=== PATIENT | female | born 1975 | race Asian ===

== ENCOUNTER 2017-03-02 16:50 | Emergency (ER) | payer OTHER ==
[~2017-03-02] VITALS: Ht 157.5 cm; Wt 63.0 kg
[2017-03-02 16:53] VITALS: Ht 157.5 cm; Wt 63.0 kg
[2017-03-02] MEDS ORDERED: KETOROLAC 30 MG INJ IV STA (18:14)
[2017-03-02 19:04] LABS: ADD UMIC YES; UR ASCORBIC ACID NEGATIVE (NEGATIVE); UR BILIRUBIN (Dip) NEGATIVE (NEGATIVE); UR BLOOD (Dip) NEGATIVE (NEGATIVE); UR CLARITY CLEAR (CLEAR); UR COLOR YELLOW (YELLOW); UR GLUCOSE (Dip) NEGATIVE (NEGATIVE); UR KETONES (Dip) NEGATIVE (NEGATIVE); UR LEUKOCYTE ESTERASE (Dip) 2+ Leu/ul (NEGATIVE); UR NITRITE (Dip) NEGATIVE (NEGATIVE); UR RBC 2 /HPF (0-5); UR SQUAMOUS EPITHELIAL CELL FEW /HPF (FEW); UR TOTAL PROTEIN (Dip) NEGATIVE (NEGATIVE); UR UROBILINOGEN (Dip) NEGATIVE (NEGATIVE)
[2017-03-02 19:34] LABS: BASOPHILS % 0.5 % (0.0-2.0); EOSINOPHILS # 0.1 10^3/ul (0.0-0.5); EOSINOPHILS % 1.1 % (0.0-7.0); HEMATOCRIT 34.9 % (37.0-47.0); HEMOGLOBIN 11.9 g/dl (12.0-16.0); LYMPHOCYTES # 2.5 10^3/ul (0.8-2.9); LYMPHOCYTES % 39.3 % (15.0-51.0); MEAN CORPUSCULAR HEMOGLOBIN 28.7 pg (29.0-33.0); MEAN CORPUSCULAR HGB CONC 34.1 g/dl (32.0-37.0); MEAN CORPUSCULAR VOLUME 84.1 fl (82.0-101.0); MEAN PLATELET VOLUME 11.3 fl (7.4-10.4); MONOCYTE # 0.3 10^3/ul (0.3-0.9); MONOCYTES % 4.7 % (0.0-11.0); NEUTROPHIL # 3.5 10^3/ul (1.6-7.5); NEUTROPHILS % 54.2 % (39.0-77.0); PLATELET COUNT 235 10^3/UL (140-415); RED BLOOD COUNT 4.15 10^6/ul (4.20-5.40); WHITE BLOOD COUNT 6.4 10^3/ul (4.8-10.8)
[2017-03-02 19:54] LABS: ALBUMIN 4.5 g/dl (3.3-4.9); ALBUMIN/GLOBULIN RATIO 1.4; BILIRUBIN,INDIRECT 0.5 mg/dl (0-1.1); BILIRUBIN,TOTAL 0.5 mg/dl (0.2-1.3); CALCIUM 9.3 mg/dl (8.4-10.2); CREATININE 0.57 mg/dl (0.44-1.00); POTASSIUM 4.5 mmol/L (3.5-5.1); TOTAL PROTEIN 7.7 g/dl (6.1-8.1)
--- NOTE | 2017-03-02 19:54 | RADRPT ---
PROCEDURE: CT abdomen and pelvis without contrast. CLINICAL INDICATION: Right lower quadrant pain TECHNIQUE: Continues 2.5 mm axial images were obtained from the domes of the diaphragms to the inf erior pubic rami. No oral or intravenous contrast was administered. The calculated dose length prod uct (DLP) = 385.64 mGy-cm. Exam CTDlvol = 6.40 mGy. One or more of the following dose reduction t echniques were used: Automated exposure control, adjustment of the mA and or KV according to patient size, or use of iterative reconstruction technique. One or more of the following dose reduction te chniques were used: Automated exposure control, adjustment of the mA and or KV according to patient size, or use of iterative reconstruction technique. COMPARISON: None. FINDINGS: Lung bases are clear. No pleural pericardial fluid is seen. Liver, gallbladder, pancreas, spleen, adrenals, and kidneys are within normal limits on this noncont rast study. There is no evidence of renal calculi or obstructive uropathy. Aorta is normal in calibe r. No pathologically enlarged mesenteric lymph nodes are seen. The stomach and small bowel loops are within normal limits. Is no small bowel dilatation or obstruction. No free fluid, free air, abscess is noted in the upper abdomen CT pelvis: images through the pelvis demonstrate no free fluid, free air, abscess. Bladder is deborah lly distended grossly unremarkable. Uterus is atrophic or surgically absent. Adnexa are grossly unre markable. Evaluation of the colon demonstrates no diverticulosis, diverticulitis or acute colitis. N ormal appendix and terminal ileum are identified. There are no pathologically enlarged iliac chain l ymph nodes. No destructive bony lesions are seen. There is mild broad-based disc bulge at L3-4, and a moderate b road-based disc bulge at L4-5. IMPRESSION: 1. No acute inflammatory process, mass, or adenopathy. 2. Normal appendix and terminal ileum. 3. Status post hysterectomy. 4. Moderate broad-based disc bulge at L4-5 RPTAT: HH .Lukas Eng MD, Date Time Electronically viewed and signed by .Lukas Eng MD, on 03/02/2017 19:53 .W/
[2017-03-02] MEDS ORDERED: CEPH-443 PO (20:37)
[2017-03-02] MEDS ORDERED: IBUP-1542 PO (20:37)
--- NOTE | 2017-03-02 20:41 | ERD ---
ER Documentation Chief Complaint Chief Complaint Pt with RLQ AP X 4 days and back pain since yesterday. HPI This 41-year-old female presents with pain in the right lower abdomen for last 4 days. She has left low back pain as well. She denies any fevers, vomiting, nausea. She denies urinary complaints or vaginal discharge. Patient states that she is status post hysterectomy and oophorectomy for some unspecified problem 15 years ago but still has her appendix. ROS All systems reviewed and are negative except as per history of present illness. Medications Home Meds Active Scripts Cephalexin* (Keflex*) 500 Mg Capsule, 500 MG PO QID for 5 Days, CAP Prov:MERCDEES PARNELL MD 03/02/17 Ibuprofen* (Motrin*) 600 Mg Tab, 600 MG PO Q6, #15 TAB Prov:MERCEDES PARNELL MD 03/02/17 PMhx/Soc Medical and Surgical Hx: pt denies Medical Hx, pt denies Surgical Hx Hx Alcohol Use: No Hx Substance Use: No Hx Tobacco Use: No Smoking Status: Never smoker Physical Exam Vitals Vital Signs Date Time Temp Pulse Resp B/P Pulse Ox O2 Delivery O2 Flow Rate FiO2 03/02/17 16:53 98.3 75 18 126/84 95 Physical Exam Const: [], [id number]. Head: Atraumatic Eyes: Normal Conjunctiva ENT: Normal External Ears, Nose and Mouth. Neck: Full range of motion..~ No meningismus. Resp: Clear to auscultation bilaterally Cardio: Regular rate and rhythm, no murmurs Abd: Soft, tenderness in the right lower quadrant. No tenderness in the upper abdomen no Haro sign. No rebound. non distended. Normal bowel sounds Skin: No petechiae or rashes Back: No midline or flank tenderness. Mild left L4-5 paraspinous muscle tenderness. Ext: No cyanosis, or edema Neur: Awake and alert Psych: Normal Mood and Affect Result Diagram: 03/02/17185403/02/171854 Results 24 hrs Laboratory Tests Test 03/02/17 18:20 03/02/17 18:55 Urine Color YELLOW Urine Clarity CLEAR Urine pH 5.0 Urine Specific [place] 1.020 Urine Ketones NEGATIVEmg/dL Urine Nitrite NEGATIVEmg/dL Urine Bilirubin NEGATIVEmg/dL Urine Urobilinogen NEGATIVEmg/dL Urine Leukocyte Esterase 2+Herminio/ul Urine Microscopic RBC 2/HPF Urine Microscopic WBC 10/HPF Urine Squamous Epithelial Cells FEW/HPF Urine Hemoglobin NEGATIVEmg/dL Urine Glucose NEGATIVEmg/dL Urine Total Protein NEGATIVEmg/dl White Blood Count 6.410^3/ul Red Blood Count 4.1510^6/ul Hemoglobin 11.9g/dl Hematocrit 34.9% Mean Corpuscular Volume 84.1fl Mean Corpuscular Hemoglobin 28.7pg Mean Corpuscular Hemoglobin Concent 34.1g/dl Red Cell Distribution Width 12.0% Platelet Count 04672^3/UL Mean Platelet Volume 11.3fl Neutrophils % 54.2% Lymphocytes % 39.3% Monocytes % 4.7% Eosinophils % 1.1% Basophils % 0.5% Nucleated Red Blood Cells % 0.0/100WBC Neutrophils # 3.510^3/ul Lymphocytes # 2.510^3/ul Monocytes # 0.310^3/ul Eosinophils # 0.110^3/ul Basophils # 0.010^3/ul Nucleated Red Blood Cells # 0.010^3/ul Sodium Level 144mmol/L Potassium Level 4.5mmol/L Chloride Level 107mmol/L Carbon Dioxide Level 27mmol/L Anion Gap 15 Blood Urea Nitrogen 13mg/dl Creatinine 0.57mg/dl Glucose Level 123mg/dl Calcium Level 9.3mg/dl Total Bilirubin 0.5mg/dl Direct Bilirubin 0.00mg/dl Indirect Bilirubin 0.5mg/dl Aspartate Amino Transf (AST/SGOT) 22IU/L Alanine Aminotransferase (ALT/SGPT) 45IU/L Alkaline Phosphatase 145IU/L Total Protein 7.7g/dl Albumin 4.5g/dl Globulin 3.20g/dl Albumin/Globulin Ratio 1.40 Lipase 134U/L Current Medications Medications (Trade) Dose Ordered Sig/Jeremy Route PRN Reason Start Time Stop Time Status Last Admin Dose Admin Ketorolac Tromethamine 30 mg 30 mg ONCE STAT IV 03/02/17 18:14 03/02/17 18:16 DC 03/02/17 18:58 Ceftriaxone Sodium (Rocephin) 50 ml @ 100 mls/hr ONCE ONCE IVPB 03/02/17 21:00 03/02/17 21:29 UNV Procedures/MDM Shows leukocytes and white blood cells. CBC shows no leukocytosis. Hemoglobin is 11.9. CMP and lipase normal. HCG negative. CT abdomen pelvis was performed given the uncertain cause of her lower quadrant abdominal pain which shows no acute abnormalities. Patient was given Rocephin 1 g IV for findings of UTI and lower abdominal pain of uncertain etiology. She was given Toradol 30 mg IV and had minimal pain and felt better after observation treatment. No signs of appendicitis, acute abdomen, sepsis, no evidence of abscess or tubo- ovarian abscess or history to suggest PID. She will be treated with ibuprofen and Keflex at home, primary care follow-up and return precautions. The patient was stable with no new complaints during the ER course. Clinically, there is no current evidence to suggest meningitis, sepsis, acute abdomen, pneumonia, acute coronary syndrome, pulmonary embolism, or any other emergent condition appearing to require further evaluation or hospitalization. The patient should certainly return for any new or worsening symptoms per the aftercare instructions. They should otherwise follow-up with her primary care doctor for reevaluation this week. Departure Diagnosis: Primary Impression: UTI (urinary tract infection) Urinary tract infection type: acute cystitis Hematuria presence: without hematuria Qualified Code: N30.00 - Acute cystitis without hematuria Additional Impression: Abdominal pain Abdominal location: right lower quadrant Qualified Code: R10.31 - Right lower quadrant abdominal pain Condition: Stable Patient Instructions: Abdominal Pain, Understanding Urinary Tract Infections ( UTIs) Additional Instructions: Urine shows infection. Additional studies normal today. Recheck for new or worsening symptoms or primary care doctor this week. MERCEDES PARNELL MD Mar 02, 2017 20:41
[2017-03-02] MEDS ORDERED: CEFTRIAXONE 1 GM/50 ML (PMX) 50 ML IVPB ONE (21:00)
[2017-03-02 21:43] VITALS: BP 124/72; PULSE 72; RESP 16
== END 2017-03-02 21:44 | disposition home or self-care (01) ==
LOC: FTE 16:50
DX: N30.00 Acute cystitis without hematuria (principal)
CPT/HCPCS: 74176; 80053; 81001; 83690; 85025; 96374; 96375; J0696; J1885; Z7502

== ENCOUNTER → 2018-11-01 | Emergency (ER) | payer SELFPAY ==
[~2018-11-01] VITALS: Ht 160 cm; Wt 78.0 kg
[~2018-11-01] MED LIST: BACITRACIN 0.5%/ZINC 28.35 GM OINT TOP ONE; BACITRACIN 0.9 GM OINT TOP ONE; CEPH-443 PO; DIPHTH/TET/ACEL PERTUSS (ADULT) 0.5 ML VIAL IM* ONE; IBUP-1542 PO; IBUP-1561 PO; IBUP800T48 PO; IBUPROFEN 800 MG TAB PO ONE; LIDOCAINE 1% (MDV) 20 ML INJ SC ONE
[2018-11-01 09:01] VITALS: BP 130/78; PULSE 78; RESP 18; Ht 160 cm; Wt 78.0 kg
--- NOTE | 2018-11-01 09:31 | ERD ---
ER Documentation Chief Complaint Chief Complaint left thumb lac HPI Patient is a 43 years old female with no known past medical history presenting to the ED for left thumb laceration X 1 hours ago. Patient admits to working and accidentally cutting her left thumb with a box printer. Patient admits to active bleeding which she applied dressing to contain it. Patient cannot recall last known tetanus vaccination. ROS All systems reviewed and are negative except as per history of present illness. Medications Home Meds Active Scripts Ibuprofen* (Motrin*) 800 Mg Tab, 800 MG PO Q6H PRN for PAIN AND OR ELEVATED TEMP, #30 TAB Prov:ERIKA MONTEZ PA-C 11/01/18 Cephalexin* (Keflex*) 500 Mg Capsule, 500 MG PO QID for 5 Days, CAP Prov:MERCEDES PARNELL MD 03/02/17 Ibuprofen* (Motrin*) 600 Mg Tab, 600 MG PO Q6, #15 TAB Prov:MERCEDES PARNELL MD 03/02/17 Allergies Allergies: Coded Allergies: No Known Allergy (Unverified , 11/01/18) PMhx/Soc Medical and Surgical Hx: pt denies Medical Hx, pt denies Surgical Hx History of Surgery: No Anesthesia Reaction: No Hx Neurological Disorder: No Hx Respiratory Disorders: No Hx Cardiac Disorders: No Hx Psychiatric Problems: No Hx Miscellaneous Medical Probl: No Hx Alcohol Use: No Hx Substance Use: No Hx Tobacco Use: No Smoking Status: Never smoker FmHx Family History: No diabetes, No coronary disease, No other Physical Exam Vitals Vital Signs Date Temp Pulse Resp B/P (MAP) Pulse Ox O2 O2 Flow FiO2 Time Delivery Rate 11/01/18 98.1 78 18 130/78 99 09:01 (95) Physical Exam Const: No acute distress Head: Atraumatic Resp: Clear to auscultation bilaterally Cardio: Regular rate and rhythm, no murmurs Abd: Soft, non tender, non distended. Normal bowel sounds Skin: 14 cm laceration on left dorsal thumb with mild bleeding. No signs of foreign body object. Psych: Normal Mood and Affect Results 24 hrs Laboratory Tests Test 11/01/18 10:10 POC Beta HCG, Qualitative NEGATIVE Current Medications Medications Dose Sig/Jeremy Start Time Status Last (Trade) Ordered Route PRN Stop Time Admin Dose Reason Admin Diphtheria/ 0.5 ml ONCE ONCE 11/01/18 DC 11/01/18 Tetanus/Acell IM* 09:30 11/01/18 09:41 Pertussis 09:31 (Adacel) Bacitracin 1 applic ONCE ONCE 11/01/18 DC (Bacitracin TOP 09:30 11/01/18 Oint (Ud)) 09:31 Lidocaine 20 ml ONCE ONCE 11/01/18 DC (Xylocaine SC 09:30 11/01/18 1% (Mdv) 20 09:31 ml) Ibuprofen 800 mg ONCE ONCE 11/01/18 DC 11/01/18 (Motrin) PO 09:30 11/01/18 09:40 09:31 Bacitracin 1 applic ONCE ONCE 11/01/18 DC 11/01/18 (Bacitracin TOP 10:00 11/01/18 09:46 0.5%/ Zinc 10:01 Oint) Procedures/MDM Patient was seen and evaluated for left thumb laceration. Tdap and ibuprofen 800 mg administered in ED. Laceration Repair by me: WALI Lozano Anesthesia: 1% lidocaine locally Location: Left dorsal thumb Tendon/Joint/Nerves: No injury Foreign body: None detected after copious irrigation and exploration Technique: Simple Interrupted Sutures (14-3.0 prolene sutures placed) Complexity: No subcutaneous sutures/mucosal repair/edge excision Post Closure Length: 14 cm Patient's bleeding was easily controlled in the department and there is no indication of anemia. No evidence of compartment syndrome, neurologic injury, vascular injury, open joint, tendon laceration, or foreign body. Patient is appropriate for outpatient follow up. 48 hour wound check. Scar minimization instructions given. Departure Diagnosis: Primary Impression: Laceration Condition: Stable Patient Instructions: Laceration, Hand Referrals: [facility] Additional Instructions: F/U in 2 days for wound check up. F/U in 6 Days for Suture removal. Patient advised to return to the ED immediately for new or worsening symptoms. Patient advised to follow up with primary care provider in the next 24-48 hours. Patient verbalized understanding and agrees with treatment plan and course of action. If patient has no primary care they may follow up with [facility] [address] [place] [id number] or [facility] [address] [place] [address] or [facility] [address] [place] [address] ERIKA MONTEZ PA-C Nov 01, 2018 09:31
== END | disposition home or self-care (01) ==
LOC: FTE 08:59
DX: S61.012A Laceration without foreign body of left thumb without damage to nail, initial encounter (principal); W26.8XXA Contact with other sharp object(s), not elsewhere classified, initial encounter; Y92.9 Unspecified place or not applicable; Z23 Encounter for immunization
CPT/HCPCS: 81025; 90471; 90715

== ENCOUNTER 2018-11-04 07:24 | Emergency (ER) | payer SELFPAY ==
[~2018-11-04] VITALS: Ht 160 cm; Wt 65.4 kg
[~2018-11-04 07:24] MED LIST changes: -BACITRACIN 0.5%/ZINC 28.35 GM OINT TOP ONE; -BACITRACIN 0.9 GM OINT TOP ONE; -DIPHTH/TET/ACEL PERTUSS (ADULT) 0.5 ML VIAL IM* ONE; -IBUPROFEN 800 MG TAB PO ONE; -LIDOCAINE 1% (MDV) 20 ML INJ SC ONE
[2018-11-04 07:36] VITALS: BP 119/76; PULSE 67; RESP 20; Ht 160 cm; Wt 65.4 kg
--- NOTE | 2018-11-04 08:13 | ERD ---
ER Documentation Chief Complaint Chief Complaint wound recheck HPI 43-year-old female presenting with a wound check to the left hand. Patient cut herself 3 days ago with a card boxer. She is right-hand dominant. Is up-to-date on her vaccinations. Denies medical problems. NKDA. Surgical history of hysterectomy. Social history denies ROS All systems reviewed and are negative except as per history of present illness. Medications Home Meds Active Scripts Ibuprofen* (Motrin*) 800 Mg Tab, 800 MG PO Q6H PRN for PAIN AND OR ELEVATED TEMP, #30 TAB Prov:ERIKA MONTEZ PA-C 11/01/18 Cephalexin* (Keflex*) 500 Mg Capsule, 500 MG PO QID for 5 Days, CAP Prov:MERCEDES PARNELL MD 03/02/17 Ibuprofen* (Motrin*) 600 Mg Tab, 600 MG PO Q6, #15 TAB Prov:MERCEDES PARNELL MD 03/02/17 Allergies Allergies: Coded Allergies: No Known Allergy (Unverified , 11/01/18) PMhx/Soc History of Surgery: No Anesthesia Reaction: No Hx Neurological Disorder: No Hx Respiratory Disorders: No Hx Cardiac Disorders: No Hx Psychiatric Problems: No Hx Miscellaneous Medical Probl: No Hx Alcohol Use: No Hx Substance Use: No Hx Tobacco Use: No FmHx Family History: No diabetes, No coronary disease, No other Physical Exam Vitals Vital Signs Date Temp Pulse Resp B/P (MAP) Pulse Ox O2 O2 Flow FiO2 Time Delivery Rate 11/04/18 97.3 67 20 119/76 99 07:36 (90) Physical Exam GENERAL: The patient is well-appearing, well-nourished, in no acute distress HEENT: Atraumatic. Conjunctivae are pink. Pupils equal, round, and reactive to light. There is no scleral icterus. Tympanic membranes clear bilaterally. Oropharynx clear. CHEST: Clear to auscultation bilaterally. There are no rales, wheezes or rhonchi. HEART: Regular rate and rhythm. No murmurs, clicks, rubs or gallops. EXTREMITIES: Equal pulses bilaterally. There is no peripheral clubbing, cyanosis or edema. No focal swelling or erythema. Full range of motion. NEUROLOGIC: Alert and oriented. Cranial nerves II through XII intact. Motor strength in all 4 extremities with 5 out of 5 strength. Sensation grossly intact. Normal speech and gait. Babinski negative. SKIN: Healing 4 cm laceration noted over the dorsal aspect of the left thumb. No dehiscence or surrounding erythema. No purulence. Procedures/MDM DM: 43-year-old female presenting with wound to left thumb. I have low suspicion for infection or dehiscence of the wound. I have low suspicion for tendon or ligament rupture. Patient is moving her thumb without any difficulty. Patient is recommended to follow-up with her primary care and told to return if symptoms change or worsen. Patient will be able to return in 5 days for suture removal. All questions answered at discharge Departure Diagnosis: Primary Impression: Encounter for wound re-check Condition: Stable Patient Instructions: Wound Check, Lac F/U (No Infection) Referrals: [facility] YOU HAVE RECEIVED A MEDICAL SCREENING EXAM AND THE RESULTS INDICATE THAT YOU DO NOT HAVE A CONDITION THAT REQUIRES URGENT TREATMENT IN THE EMERGENCY DEPARTMENT. FURTHER EVALUATION AND TREATMENT OF YOUR CONDITION CAN WAIT UNTIL YOU ARE SEEN IN YOUR DOCTORS OFFICE WITHIN THE NEXT 1-2 DAYS. IT IS YOUR RESPONSIBILITY TO MAKE AN APPOINTMENT FOR THE [facility]. IF YOU HAVE A PRIMARY DOCTOR --you should call your primary doctor and schedule an appointment IF YOU DO NOT HAVE A PRIMARY DOCTOR YOU CAN CALL OUR PHYSICIAN REFERRAL HOTLINE AT IF YOU CAN NOT AFFORD TO SEE A PHYSICIAN YOU CAN CHOSE FROM THE FOLLOWING [facility] [address] [facility]. [facility] [address] [facility]. [facility] [address] [facility] [address] [facility]. [facility] [address] [facility]. [facility] [address] Additional Instructions: FOLLOW UP WITH YOUR PRIMARY CARE PHYSICIAN TOMORROW.Return to this facility if you are not improving as expected. JAYA BENDER PA-C Nov 04, 2018 08:12
== END 2018-11-04 08:30 | disposition home or self-care (01) ==
LOC: FTE 07:24
DX: Z48.01 Encounter for change or removal of surgical wound dressing (principal)
CPT/HCPCS: 99281

== ENCOUNTER 2018-11-08 10:35 | Emergency (ER) | payer SELFPAY ==
[~2018-11-08] VITALS: Ht 160 cm; Wt 66.5 kg
[2018-11-08 10:39] VITALS: BP 127/75; PULSE 73; RESP 18; Ht 160 cm; Wt 66.5 kg
--- NOTE | 2018-11-08 11:19 | ERD ---
ER Documentation Chief Complaint Chief Complaint suture removal to the left thumb HPI Patient is a 43 years old female presenting to the clinic for suture removal on left thumb. Patient had a laceration on 11/01/2018 which was followed by 14 laceration placement. She reports pain is very minimal and admits to taking ibuprofen with resolution of pain. She denies pus drainage, erythema, fever, chills, night sweats. ROS All systems reviewed and are negative except as per history of present illness. Medications Home Meds Active Scripts Ibuprofen* (Motrin*) 400 Mg Tab, 400 MG PO Q8, #30 TAB Prov:ERIKA MONTEZ PA-C 11/08/18 Ibuprofen* (Motrin*) 800 Mg Tab, 800 MG PO Q6H PRN for PAIN AND OR ELEVATED TEMP, #30 TAB Prov:ERIKA MONTEZ PA-C 11/01/18 Cephalexin* (Keflex*) 500 Mg Capsule, 500 MG PO QID for 5 Days, CAP Prov:MERCEDES PARNELL MD 03/02/17 Ibuprofen* (Motrin*) 600 Mg Tab, 600 MG PO Q6, #15 TAB Prov:MERCEDES PARNELL MD 03/02/17 Allergies Allergies: Coded Allergies: No Known Allergy (Unverified , 11/01/18) PMhx/Soc Medical and Surgical Hx: pt denies Medical Hx, pt denies Surgical Hx History of Surgery: No Anesthesia Reaction: No Hx Neurological Disorder: No Hx Respiratory Disorders: No Hx Cardiac Disorders: No Hx Psychiatric Problems: No Hx Miscellaneous Medical Probl: No Hx Alcohol Use: No Hx Substance Use: No Hx Tobacco Use: No Smoking Status: Never smoker FmHx Family History: No diabetes, No coronary disease, No other Physical Exam Vitals Vital Signs Date Temp Pulse Resp B/P (MAP) Pulse Ox O2 O2 Flow FiO2 Time Delivery Rate 11/08/18 98.8 73 18 127/75 99 10:39 (92) Physical Exam Const: No acute distress Head: Atraumatic Resp: Clear to auscultation bilaterally Cardio: Regular rate and rhythm, no murmurs Skin: 4 cm laceration on left dorsal thumb that is healing appropriately without complications. No dehiscence, tenderness, discharge, induration noted. Psych: Normal Mood and Affect Procedures/MDM Patient was seen and evaluated for suture removal. 14 sutures removed without complication followed by Steri-Strip placement. Patient is stable and ready for discharge. Follow-up with PCP. Patient was advised that she might have possible mild nerve damage due to deep laceration cut. Patient was also advised to follow-up with all [facility] hand clinic for further evaluation. Departure Diagnosis: Primary Impression: Encounter for removal of sutures Condition: Stable Patient Instructions: Suture Removal, No Complication Referrals: [facility] Additional Instructions: Patient advised to return to the ED immediately for new or worsening symptoms. Patient advised to follow up with primary care provider in the next 24-48 hours. Patient verbalized understanding and agrees with treatment plan and course of action. If patient has no primary care they may follow up with [facility] [address] [place] [id number] or [facility] [address] [place] [address] or [facility] [address] [place] [address] ERIKA MONTEZ PA-C Nov 08, 2018 11:19
== END 2018-11-08 11:42 | disposition home or self-care (01) ==
LOC: FTE 10:35
DX: Z48.02 Encounter for removal of sutures (principal)
CPT/HCPCS: 99281